=== PATIENT | female | born 1980 | race Caucasian/White ===

== ENCOUNTER 2018-12-28 05:24 | Day surgery (SDC) | payer MEDICAID ==
[2018-12-27 09:33] LABS: BASOPHILS # (AUTO) 0.1 X10'3 (0-0.2); EOSINOPHILS # (AUTO) 0.1 X10'3 (0-0.9); EOSINOPHILS % (AUTO) 1.3 % (0-6); LYMPHOCYTES # (AUTO) 2.6 X10'3 (1.1-4.8); LYMPHOCYTES % (AUTO) 28.9 % (21-51); MEAN CORPUSCULAR HEMOGLOBIN 29.2 PG (27.0-31.0); MEAN CORPUSCULAR HGB CONC 33.4 g/dL (33.0-36.5); MEAN CORPUSCULAR VOLUME 87.3 FL (78-98); MEAN PLATELET VOLUME 9.4 FL (7.4-10.4); MONOCYTES # (AUTO) 0.6 X10'3 (0-0.9); MONOCYTES % (AUTO) 6.8 % (2-12); NEUTROPHILS # (AUTO) 5.6 X10'3 (1.8-7.7); PRE OP HEMOGLOBIN 12.7 g/dL (12.0-16.0); PRE OP PLATELET COUNT 278 X10'3 (140-440); RED BLOOD COUNT 4.35 X10'6 (4.20-5.60); RED CELL DISTRIBUTION WIDTH 13.5 % (11.5-14.5)
[2018-12-27 09:51] LABS: ALBUMIN 3.5 G/DL (3.4-5.0); ALBUMIN/GLOBULIN RATIO 0.9 (1.1-1.5); ALKALINE PHOSPHATASE 68 IU/L (46-116); BLOOD UREA NITROGEN 10 MG/DL (7-18); BUN/CREATININE RATIO 12.8 (6.6-38.0); CALCIUM 9.1 MG/DL (8.5-10.1); CHLORIDE 101 MMOL/L (99-107); CREATININE 0.78 MG/DL (0.40-0.90); PRE OP ALT 26 U/L (30-65); PRE OP ANION GAP 9 (8-16); PRE OP AST 14 U/L (10-37); PRE OP BILIRUB, TOTAL 0.2 MG/DL (0.0-1.0); PRE OP POTASSIUM 3.9 MMOL/L (3.4-5.1); PRE OP SODIUM 135 MMOL/L (135-145); TOTAL CARBON DIOXIDE 25.5 MMOL/L (24-32); TOTAL PROTEIN 7.3 G/DL (6.4-8.2); eGFR 83 ML/MIN
[2018-12-27 09:52] LABS: PRE OP GLUCOSE 263 MG/DL (70-104)
[2018-12-27 10:59] LABS: HEMOGLOBIN A1C 8.2 % (4.5-6.2)
[~2018-12-28] VITALS: Ht 165.1 cm; Wt 102.8 kg
[~2018-12-28 05:24] MED LIST: ACET-812 PO; BACL20TA PO; CHOL100046 PO; DICY20TA17 PO; DIPH25CA83 PO; FLUO20CA22 PO; GABA-532 PO; METF-950 PO; NAPR-996 PO; OMEP-50 PO; VITA1TAB20 PO; ringers solution, lacted 1,000 ML IV SCH
[2018-12-28 05:30] VITALS: BP 111/69
[2018-12-28] MEDS ORDERED: clindamycin 600mg/D5W 50ml 50 ML IV ONE (05:30)
[2018-12-28] MEDS ORDERED: famotidine 20mg tablet PO ONE (05:30)
[2018-12-28] MEDS ORDERED: LIDOcaine 1% (10mg/ml) 2ml vial ONE (05:49)
[2018-12-28] MEDS ORDERED: BUPIVAcaine/PF 2.5mg/ml (0.25%) 10ml vial ONE (06:39)
[2018-12-28] MEDS ORDERED: LIDOcaine 0.5% (5mg/ml) 50ml vial ONE (06:59)
[2018-12-28] MEDS ORDERED: ringers solution, lacted 1,000 ML IV SCH (07:01)
[2018-12-28] MEDS ORDERED: ondansetron/PF 4mg/2ml inj IV PRN (07:05)
[2018-12-28] MEDS ORDERED: labetalol 20mg/4ml (5mg/ml) syringe IV PRN (07:05)
[2018-12-28] MEDS ORDERED: morphine 4 MG/ML inj SYRINge IV PRN ×2 (07:05)
[2018-12-28] MEDS ORDERED: hydrALAZINE 20mg/ml inj. IV PRN (07:05)
[2018-12-28] MEDS ORDERED: fentaNYL/PF 50MCG/1 ML 2ML syringe IV PRN ×2 (07:05)
[2018-12-28] MEDS ORDERED: fentaNYL/PF 50MCG/1 ML 2ML syringe ONE (07:07)
[2018-12-28] MEDS ORDERED: MIDAZolam 5mg/5ml vial ONE (07:08)
[2018-12-28] MEDS ORDERED: LIDOcaine 2% (20mg/ml) 5ml vial ONE (07:10)
[2018-12-28] MEDS ORDERED: propofol inj 20 ML IV ONE (07:10)
[2018-12-28 07:52] VITALS: BP 136/81
--- NOTE | 2018-12-28 07:52 | NUR ---
Received from OR via , accompanied by Anesthesiologist AIRAM and report given by Anesthesiolgist. AWAKE IN NO RESP DISTRESS SKIN WARM AND DRY HOB AND LUE ELEVATED, FINGERS WARM PINK GOOD CAP REFILL, VS WNL. NO CO PAIN.
[2018-12-28 08:02] VITALS: BP 135/89
[2018-12-28 08:12] VITALS: BP 123/79
[2018-12-28 08:22] VITALS: BP 115/71
--- NOTE | 2018-12-28 08:32 | NUR ---
AWAKE VS WNL NO CO PAIN, DSG DI, MOVES FINGERS, WARM PINK GOOD CAP REFILL. TOLERATES LIQUIDS, DISCH INST GIVEN TO PT AND AND UNDERSTOOD,HOME
== END 2018-12-28 08:32 | disposition home or self-care (01) ==
LOC: PAS 05:24
PROVIDERS: ATTEND Orthopaedic Surgery Hand Surgery
DX: G56.02 Carpal tunnel syndrome, left upper limb (principal); E11.9 Type 2 diabetes mellitus without complications
CPT/HCPCS: 29848; 36415; 80053; 82948; 83036; 85025; A6449; J2001; J2250; J2704; J3010; J3490; A7000; J7120

== ENCOUNTER 2021-03-04 21:16 | Emergency (ER) | payer MEDICAID, OTHER ==
[~2021-03-04] VITALS: Ht 165.1 cm; Wt 104.5 kg
[~2021-03-04 21:16] MED LIST changes: +FLUO-167 PO; -FLUO20CA22 PO; -ringers solution, lacted 1,000 ML IV SCH
[2021-03-04] MEDS ORDERED: ketorolac tromethamine 15mg/ml inj. IM ONE (22:35)
[2021-03-04] MEDS ORDERED: diazepam inj 5 MG/ML inj. IV ONE (22:35)
[2021-03-04] MEDS ORDERED: diazepam inj 5 MG/ML inj. IM ONE (23:00)
[2021-03-04 23:15] VITALS: BP 118/73
== END 2021-03-04 23:17 | disposition home or self-care (01) ==
LOC: ER 21:17
DX: M54.42 Lumbago with sciatica, left side (principal); M54.5 Low back pain; R20.0 Anesthesia of skin; E11.9 Type 2 diabetes mellitus without complications; G89.29 Other chronic pain; Z88.0 Allergy status to penicillin; Z79.899 Other long term (current) drug therapy
CPT/HCPCS: 96372; 99284; J1885; J3360

== ENCOUNTER 2022-05-27 06:31 | Emergency (ER) | payer MEDICAID ==
[~2022-05-27] VITALS: Ht 165.1 cm; Wt 95.0 kg
[~2022-05-27 06:31] MED LIST changes: +METF-1203 PO; -METF-950 PO; -OMEP-50 PO; +OMEP20CA16 PO
[2022-05-27 07:02] VITALS: BP 122/87
[2022-05-27] MEDS ORDERED: acetaminophen 325mg tablet PO ONE (07:20)
[2022-05-27] MEDS ORDERED: ondansetron/PF 4mg/2ml inj IV ONE (07:20)
[2022-05-27] MEDS ORDERED: famotidine/PF 10 mg/ml inj IV ONE (07:20)
[2022-05-27] MEDS ORDERED: ringers solution, lacted 1,000 ML IV ONE (07:20)
[2022-05-27 08:29] LABS: BASOPHILS % (AUTO) 0.5 % (0-1); EOSINOPHILS % (AUTO) 0.1 % (0-6); HEMATOCRIT 37.7 % (35.0-45.0); HEMOGLOBIN 12.4 g/dl (12.0-16.0); LYMPHOCYTES # (AUTO) 1.8 X10'3 (1.1-4.8); LYMPHOCYTES % (AUTO) 20.6 % (21-51); MEAN CORPUSCULAR HEMOGLOBIN 27.2 PG (27.0-31.0); MEAN CORPUSCULAR VOLUME 82.3 FL (78-98); MEAN PLATELET VOLUME 8.9 FL (7.4-10.4); MONOCYTES # (AUTO) 0.6 X10'3 (0-0.9); NEUTROPHILS # (AUTO) 6.4 X10'3 (1.8-7.7); NEUTROPHILS % (AUTO) 71.8 % (42-75); PLATELET COUNT 325 X10'3 (140-440); RED BLOOD COUNT 4.58 X10'6 (4.20-5.60); RED CELL DISTRIBUTION WIDTH 14.8 % (11.5-14.5); WHITE BLOOD COUNT 8.9 X10'3 (4.5-11.0)
[2022-05-27 08:31] LABS: ALANINE AMINOTRANSFERASE 145 U/L (12-78); ALBUMIN 4.1 G/DL (3.4-5.0); ALKALINE PHOSPHATASE 70 IU/L (46-116); ANION GAP 10 (8-16); ASPARTATE AMINO TRANSFERASE 77 U/L (10-37); BILIRUBIN,TOTAL 0.6 MG/DL (0.1-1.0); BLOOD UREA NITROGEN 14 MG/DL (7-18); BUN/CREATININE RATIO 18.7 (6.6-38.0); CALCIUM 9.2 MG/DL (8.5-10.1); CHLORIDE 101 MMOL/L (99-107); CREATININE 0.75 MG/DL (0.40-0.90); GLUCOSE 174 MG/DL (70-104); POTASSIUM 3.7 MMOL/L (3.5-5.1); SODIUM 135 MMOL/L (135-145); TOTAL CARBON DIOXIDE 24.5 MMOL/L (24-32); TOTAL PROTEIN 8.3 G/DL (6.4-8.2); eGFR 85 ML/MIN
[2022-05-27 08:35] LABS: LIPASE 176 U/L (73-393)
== END 2022-05-27 13:24 | disposition home or self-care (01) ==
LOC: ER 06:31
DX: U07.1 COVID-19 (principal); E11.9 Type 2 diabetes mellitus without complications; G89.29 Other chronic pain; M54.9 Dorsalgia, unspecified; Z88.0 Allergy status to penicillin; Z79.899 Other long term (current) drug therapy
CPT/HCPCS: 36415; 71045; 80053; 83690; 84484; 85025; 87635; 93005; 96361; 96374; 96375; 99285; C9803; J2405; J3490; J7120; J7030

== ENCOUNTER 2023-05-24 16:11 | Emergency (ER) | payer MEDICAID ==
[~2023-05-24] VITALS: Ht 165.1 cm; Wt 91.4 kg
[2023-05-24 17:24] LABS: URINE HCG NEGATIVE (NEG)
[2023-05-24 17:34] LABS: BASOPHILS # (AUTO) 0.2 X10'3 (0-0.2); EOSINOPHILS # (AUTO) 0.1 X10'3 (0-0.9); MONOCYTES # (AUTO) 0.8 X10'3 (0-0.9); NEUTROPHILS # (AUTO) 3.6 X10'3 (1.8-7.7); RED BLOOD COUNT 4.21 X10'6 (4.20-5.60); RED CELL DISTRIBUTION WIDTH 15.2 % (11.5-14.5)
[2023-05-24 17:36] LABS: BASOPHILS % (AUTO) 2.4 % (0-1); EOSINOPHILS % (AUTO) 1.6 % (0-6); HEMOGLOBIN 10.9 g/dl (12.0-16.0); LYMPHOCYTES # (AUTO) 2.8 X10'3 (1.1-4.8); LYMPHOCYTES % (AUTO) 37.8 % (21-51); MEAN CORPUSCULAR HEMOGLOBIN 25.9 PG (27.0-31.0); MEAN CORPUSCULAR HGB CONC 32.1 g/dL (33.0-36.5); MEAN CORPUSCULAR VOLUME 80.8 FL (78-98); MEAN PLATELET VOLUME 9.2 FL (7.4-10.4); MONOCYTES % (AUTO) 10.3 % (2-12); NEUTROPHILS % (AUTO) 47.9 % (42-75); PLATELET COUNT 313 X10'3 (140-440); WHITE BLOOD COUNT 7.5 X10'3 (4.5-11.0)
[2023-05-24 17:50] LABS: ALANINE AMINOTRANSFERASE 24 U/L (12-78); ALBUMIN 3.5 G/DL (3.4-5.0); ALBUMIN/GLOBULIN RATIO 0.8 (1.1-1.5); ALKALINE PHOSPHATASE 89 IU/L (46-116); ANION GAP 9 (8-16); ASPARTATE AMINO TRANSFERASE 14 U/L (10-37); BILIRUBIN,TOTAL 0.2 MG/DL (0.1-1.0); BLOOD UREA NITROGEN 10 MG/DL (7-18); CHLORIDE 104 MMOL/L (99-107); CREATININE 0.77 MG/DL (0.40-0.90); GLUCOSE 152 MG/DL (70-104); LIPASE 187 U/L (73-393); POTASSIUM 3.7 MMOL/L (3.5-5.1); SODIUM 138 MMOL/L (135-145); TOTAL CARBON DIOXIDE 24.8 MMOL/L (24-32); eCRCL 86 ML/MIN; eGFR 82 ML/MIN
[2023-05-24 18:10] LABS: UA COLLECTION TYPE NON-SPECIFIED
[2023-05-24 18:11] LABS: CLARITY,URINE BLOODY (Clear); COLOR,URINE RED (Yellow)
[2023-05-24 18:12] VITALS: TEMP 96.9
[2023-05-24] MEDS ORDERED: normal saline 1000ML IV soln IVB ONE (18:15)
[2023-05-24 18:34] LABS: BACTERIA,URINE FEW /HPF (Neg); RBC,URINE TNTC /HPF (0-2); SQUAMOUS EPITHELIAL CELL,UR NONE SEEN /LPF (FEW); WBC,URINE 0-4 /HPF (0-4)
[2023-05-25 00:30] VITALS: BP 125/81; PULSE 72; O2SAT 96
[2023-05-25] MEDS ORDERED: ketorolac trometh. 30mg/ml inj. IV ONE (00:35)
[2023-05-25] MEDS ORDERED: NORG1TAB12 PO (00:49)
[2023-05-25 01:03] VITALS: RESP 17
== END 2023-05-25 01:08 | disposition home or self-care (01) ==
LOC: ER 16:11
DX: N93.8 Other specified abnormal uterine and vaginal bleeding (principal); G89.29 Other chronic pain; M54.9 Dorsalgia, unspecified; E11.9 Type 2 diabetes mellitus without complications
CPT/HCPCS: 36415; 80053; 81001; 81025; 83690; 85025; 86885; 86900; 86901; 96374; 99285; J1885; J7030